=== PATIENT | female | born 1990 | race Caucasian/White ===

== ENCOUNTER 2018-04-26 23:28 | Emergency (ER) | payer OTHER ==
[~2018-04-26] VITALS: Ht 165.1 cm; Wt 56.8 kg
[2018-04-26] MEDS ORDERED: LORazepam 2 MG/ML VIAL (J2060) IV STA (23:49)
[2018-04-26] MEDS ORDERED: MONOTAB PO (23:50)
[2018-04-26] MEDS ORDERED: VITATAB11 PO (23:50)
[2018-04-27 00:13] LABS: BASO % 0.3 % (0.0-1.0); EOS # 0.2 10^3/uL (0.0-0.50); HEMATOCRIT 39.5 % (36.0-47.0); HEMOGLOBIN 12.7 g/dl (12.0-15.5); LYMPH # 2.7 10^3/uL (1.5-6.5); LYMPH % 36.2 % (24.0-44.0); MEAN CORPUSCULAR HEMOGLOBIN 27.9 pg (27.0-33.0); MEAN CORPUSCULAR HGB CONC 32.2 g/dl (32.0-36.5); MEAN CORPUSCULAR VOLUME 86.8 fl (80.0-96.0); MONO # 0.5 10^3/uL (0.0-0.8); MONO % 7.2 % (0.0-5.0); NEUTROPHILS % 54.2 % (36.0-66.0); PLATELET COUNT, AUTOMATED 287 10^3/uL (150-450); RED BLOOD COUNT 4.55 10^6/uL (4.00-5.40); WHITE BLOOD COUNT 7.5 10^3/uL (4.0-10.0)
[2018-04-27 01:01] LABS: BLOOD UREA NITROGEN 13 MG/DL (7-18); CALCIUM LEVEL 9.4 MG/DL (8.5-10.1); CARBON DIOXIDE LEVEL 24 MEQ/L (21-32); CHLORIDE LEVEL 107 MEQ/L (98-107); CK-MB VALUE MASS < 1.0 NG/ML (<3.6); CPK CREATINE PHOSPHOKINASE 91 U/L (26-192); CREATININE FOR GFR 0.86 MG/DL (0.55-1.30); GLOMERULAR FILTRATION RATE > 60.0 (>60); GLUCOSE, FASTING 104 MG/DL (70-100); POTASSIUM SERUM 3.8 MEQ/L (3.5-5.1); SODIUM LEVEL 140 MEQ/L (136-145); TROPONIN I < 0.02 NG/ML (< 0.10)
[2018-04-27 01:13] LABS: HCG, SERUM QUALITATIVE NEGATIVE (NEGATIVE)
[2018-04-27] MEDS ORDERED: ATIV1TAB10 PO (01:31)
[2018-04-27] MEDS ORDERED: LORazepam 0.5 MG TAB PO ONE (01:45)
[2018-04-27 01:52] VITALS: BP 126/73
--- NOTE | 2018-04-27 19:33 | ECGEPIP ---
Stationary ECG Study [facility] - ED Test Date: 2018-04-26 Pat Name: SHAUNA POLK Department: Room: - Gender: F Plant Safety Leader: : 1990 Requested By: LACHO Goddard Order Number: [id number] Reading MD: Angy Murdock Measurements Intervals Chloe Rate: 77 P: 44 RI: 125 QRS: 46 QRSD: 81 T: 38 QT: 374 QTc: 425 Interpretive Statements SINUS RHYTHM WITH OCCASIONAL VENTRICULAR PREMATURE COMPLEXES NO PRIOR FOR COMPARISON Electronically Signed On 04-27-2018 19:33:25 EST by Angy Murdock
== END 2018-04-27 01:53 | disposition home or self-care (01) ==
LOC: M ED 23:28
DX: R07.89 Other chest pain (principal); I10 Essential (primary) hypertension; F41.1 Generalized anxiety disorder; Z79.3 Long term (current) use of hormonal contraceptives; Z79.899 Other long term (current) drug therapy